=== PATIENT | male | born 1970 | race Caucasian/White ===

== ENCOUNTER 2024-09-03 10:50 | Emergency (ER) | payer MEDICAID, SELFPAY ==
--- NOTE | 2024-09-03 10:45 | DI.RAD_ITS ---
Exam(s) XR ANKLE RT COMPLETE EXAM: XR ANKLE RT COMPLETE CLINICAL HISTORY: Fall. TECHNIQUE: 2D digital imaging was performed of the right ankle. Three images were obtained. AP, la teral and oblique views were obtained. COMPARISON: No exams were available for comparison FINDINGS: BONES: There is an acute comminuted fracture involving the distal fibula. The fracture lies at the s ne level as the talar dome. There is mild displacement of fracture fragments. There is a curviline ar fracture at the tip of the medial malleolus suspicious for an avulsed fracture fragment. No bony destructive lesion is seen. There is a plantar calcaneal spur. There is a nondisplaced posterior mal leolar fracture. JOINTS: There is widening of the medial ankle joint. SOFT TISSUE: There is soft tissue swelling about the ankle. IMPRESSION: Trimalleolar fracture of the right ankle. There is mild widening of the medial joint space. DATA REPOSITORY: RADIATION DOSE DELIVERED:
[2024-09-03 10:54] VITALS: BP 124/77; PULSE 100; RESP 18; TEMP 36.8; O2SAT 97
--- NOTE | 2024-09-03 11:05 | ED.GENADUL_ITS ---
Discharge Plan Disposition Patient Disposition: Home Condition: Stable Discharge Details Clinical Impression: Closed trimalleolar fracture of right ankle Primary Care Provider: Monika Baird ED Provider: Crystal Bowling Discharge Instructions Instructions: How to Use Crutches, Fracture, Adult ED, Splint Care ED Additional Instructions: You have broken a couple bones in your right ankle. Please keep the splint on until follow-up with orthopedics within the next week. Dr. Dennis states that he will probably see you on Thursday. You should be hearing from their office within the next couple of days. If you do not hear from them by Thursday please give them a call. Do not get the splint wet, nonweightbearing use the crutches, elevate your leg above the level of your heart when sitting or lying down. You may apply ice few times a day. Please take Tylenol or Ibuprofen with food every 4-6 hours as needed for pain and swelling. Please take your other previously prescribed medications as directed. Thank you for allowing us to care for you today. Stand Alone Forms: Work Release Referrals: Memo Dennis MD [ [facility] STAFF PHYSICIAN] - 1 week HPI General Mode of arrival: wheelchair . Date/Time Provider Initiated Documentation: 09/03/24 10:58 . Limitations to Documentation: no limitations . Information obtained by: patient and RN notes reviewed . HPI Narrative: 54-year-old male presents to the ER with a chief complaint of mechanical slip and fall on ice which occurred this morning. He reports that his leg went underneath him and he heard a crunch. He is complaining of right ankle pain. He does have swelling noted to the medial and lateral malleolus. Denies any hip or knee pain or any other injuries. Distal CMS is intact. Does have a history of insulin-dependent diabetes, hypertension, heart disease and high cholesterol. He reports that he is on 3 blood thinners including aspirin and blood pressure medication and insulin however he cannot give a list of his medications at this time. He did not hit his head no neck or back pain. Related Data Allergies Allergy/AdvReac Type Severity Reaction Status Date / Time No Known Allergies Allergy Verified 09/03/24 11:14 General Stated Complaint: Orthopedic ARIS: 4 Review of Systems Musculoskeletal Musculoskeletal: Reports as per HPI, Reports arthralgias and Reports joint swelling Exam Const General: cooperative, comfortable and well developed Nutritional Appearance: overweight Orientation: alert, awake and oriented x3 Resp Effort & Inspection: normal respiratory effort and able to speak in complete sentences Auscultation: clear to auscultation bilaterally Cardio Rhythm: regular rhythm Heart Sounds: S1 normal and S2 normal Neuro General: patient alert, patient awake and patient oriented x3 Extrem Right lower extremity: ankle Details: tenderness Location: of the lateral malleolus, of the medial malleolus and anterolaterally and swelling Course Vital Signs Vital signs: Vital Signs Temperature 36.8 C 09/03/24 10:54 Pulse 100 H 09/03/24 10:54 Respiratory Rate 18 09/03/24 10:54 Blood Pressure 124/77 09/03/24 10:54 Pulse Oximetry 97 09/03/24 10:54 Temperature 36.8 C 09/03/24 10:54 Pulse 100 H 09/03/24 10:54 Respiratory Rate 18 09/03/24 10:54 Blood Pressure 124/77 09/03/24 10:54 Pulse Oximetry 97 09/03/24 10:54 Procedure Orthopedic Splinting/Casting Date of Procedure: 09/03/24 Time of procedure: 12:35 Provider that performed the procedure: Crystal Forbes Time Out Performed: No Patient Consented: Verbally Side: right Lower Extremity Injury Location: ankle Lower Extremity Immobilizer: posterior splint, stirrup splint and Shaw wrap Weight bearing status: non-weight bearing as tolerated Other Orthopedic Equipment: crutches Procedure Description/Note: Webril and Kerlix dressing applied for bulky padding, posterior splint and stirrup splint applied. Distal CMS intact cap refill less than 2 seconds post application. Medical Decision Making 54-year-old male presents to the ER with a chief complaint of mechanical slip and fall on ice which occurred this morning. He reports that his leg went underneath him and he heard a crunch. He is complaining of right ankle pain. He does have swelling noted to the medial and lateral malleolus. Denies any hip or knee pain or any other injuries. Distal CMS is intact. Does have a history of insulin-dependent diabetes, hypertension, heart disease and high cholesterol. He reports that he is on 3 blood thinners including aspirin and blood pressure medication and insulin however he cannot give a list of his medications at this time. He did not hit his head no neck or back pain. X-ray right ankle ordered, ice pack. Offered analgesic which patient declined at this time. Discussed with orthopedic surgeon on-call Dr. Dennis who was able to review the images. He recommends splint, nonweightbearing and elevation crutches or walker and follow-up this week for surgery planning. He also recommends a hemoglobin A1c which was ordered. Posterior fiberglass and stirrup splint applied with extra Webril and padding. Patient tolerated well distal CMS intact post splint application. Given crutch training by ED staff prior to discharge. This text was generated using [employer] system, please disregard any oddities of phrase or misspellings. Imaging Data Radiologic Study: Imaging: X-Ray Radiologist's impression: TECHNIQUE: Imaging protocol: Radiologic exam of the right ankle. Views: 3 or more views. COMPARISON: No relevant prior studies available. FINDINGS: Bones/joints: Comminuted minimally displaced distal fibular fracture at the level of the syndesmosis. Minimally displaced fracture at the tip of the medial malleolus. There is widening of the medial clear space measuring 5 mm. Nondisplaced fracture of the posterior malleolus. Small ankle joint effusion. There is a noninflamed plantar enthesophyte. Soft tissues: There is soft tissue swelling. IMPRESSION: Trimalleolar fracture with widening of the medial clear space, suggestive of instability. Thank you for allowing us to participate in the care of your patient. Dictated and Authenticated by: Telly Roque MD Quality:SDOH Health Related Social Needs: No Data to Display PFSH All Active Problems (Updated 09/03/24 @ 12:47 by Memo Dennis MD) Uncontrolled diabetes mellitus with hyperglycemia (Acute) Closed trimalleolar fracture of right ankle (Acute) Social History Smoking/Tobacco Use Status: Current every day Tobacco Type: cigarettes Smoking risk assessment performed?: Yes Alcohol Intake: former Drug use: Never Substance use type: does not use
--- NOTE | 2024-09-03 11:43 | DI.VRAD_ITS ---
PROCEDURE INFORMATION: Exam: XR Right Ankle Exam date and time: 09/03/2024 11:15 AM Age: 54 years old Clinical indication: Injury or trauma; Other: Swelling and pain post fall TECHNIQUE: Imaging protocol: Radiologic exam of the right ankle. Views: 3 or more views. COMPARISON: No relevant prior studies available. FINDINGS: Bones/joints: Comminuted minimally displaced distal fibular fracture at the level of the syndesmosis. Minimally displaced fracture at the tip of the medial malleolus. There is widening of the medial clear space measuring 5 mm. Nondisplaced fracture of the posterior malleolus. Small ankle joint effusion. There is a noninflamed plantar enthesophyte. Soft tissues: There is soft tissue swelling. IMPRESSION: Trimalleolar fracture with widening of the medial clear space, suggestive of instability. Dictated and Authenticated by: Telly Roque MD. Orderin Tawnya Rojas MD
[2024-09-03 12:20] LABS: Hemoglobin A1C > 13.0 % (<5.7)
--- NOTE | 2024-09-03 12:46 | W.ORTHOCONSU ---
Date of service: 09/03/24 Time of Service: 12:46 Assessment and Plan Assessment and plan (1) Closed trimalleolar fracture of right ankle: Status: Acute Assessment and plan: 54 year old male with mildly displaced trimalleoloar right ankle fx Although the fractures are only mildly displaced, this is an unstable ankle fracture pattern with slight lateral talar translation. These injuries are typically treated with ORIF surgery. Unfortunately, his diabetes is completely uncontrolled with HbA1c > 13, which is far too high risk for any definitive surgical management here at [facility]. Morbid obesisty BMI almost 40 also makes management and recovery more challending. Recommend contacting [facility] orthopedics to arrange for transfer vs urgent outpatient follow up. Medical admission may be required to optimize blood glycemic control perioperatively with orthopedic surgery on consult. Instructed ER to apply careful well padded short leg splint to avoid skin breakdown, elevation, non-weight bearing with crutches or walker, and DVT PPX in the meanwhile. (2) Uncontrolled diabetes mellitus with hyperglycemia: Status: Acute [facility] All Active Problems (Updated 09/03/24 @ 12:47 by Memo Dennis MD) Uncontrolled diabetes mellitus with hyperglycemia (Acute) Closed trimalleolar fracture of right ankle (Acute) Social History Smoking/Tobacco Use Status: Current every day Tobacco Type: cigarettes Smoking risk assessment performed?: Yes Alcohol Intake: former Drug use: Never Substance use type: does not use Results Last Vital Signs Temp 98.2 F 09/03/24 10:54 Pulse 100 H 09/03/24 10:54 Resp 18 09/03/24 10:54 BP 124/77 09/03/24 10:54 Pulse Ox 97 09/03/24 10:54 Labs Labs: Laboratory Results - last 24 hr 09/03/24 12:00 Hemoglobin A1c > 13.0 H
== END 2024-09-03 15:09 | disposition home or self-care (01) ==
PROVIDERS: Emergency Provider Registered Nurse Emergency; PCP Nurse Practitioner
DX: S82.851A Displaced trimalleolar fracture of right lower leg, initial encounter for closed fracture (principal); E11.65 Type 2 diabetes mellitus with hyperglycemia; W00.0XXA Fall on same level due to ice and snow, initial encounter
CPT/HCPCS: 36415; 99284; 73610; 83036